=== PATIENT | female | born 1960 | race Caucasian/White ===

== ENCOUNTER 2016-11-10 22:50 | Emergency (ER) | payer OTHER ==
[~2016-11-10] VITALS: Ht 175.3 cm; Wt 85.9 kg
[~2016-11-10 22:50] MED LIST: DEBROX 30 ML30 ML OTIC; FLEXERIL10 MG PO; KEFLEX250 M1 PO; LEVOTHYROXINE75 MCG PO; MOTRIN800 MG PO
[2016-11-10 22:58] VITALS: BP 133/75
--- NOTE | 2016-11-11 00:17 | ED GENERAL ADULT ---
History of Present Illness General Chief Complaint: General Adult Stated Complaint: PT SKIN ON THE LEFT LEG TENDER,SWOLLEN Source: patient, family Exam Limitations: language barrier Vital Signs & Intake/Output Vital Signs & Intake/Output Vital Signs Date Time Temp Pulse Resp B/P Pulse O2 O2 Flow FiO2 Ox Delivery Rate 11/11 0107 99.7 11/11 0107 Room Air 11/11 0106 99.7 11/10 2302 101.3 11/10 2258 101.3 98 20 133/75 97 Room Air ED Intake and Output 11/11 0000 11/10 1200 Intake Total Output Total Balance Patient 189 lb Weight Allergies Coded Allergies: NO KNOWN ALLERGIES (11/11/14) Reconcile Medications Carbamide Peroxide (Debrox 30 Ml) 30 ML CAN 2 GTT OTIC TID EAR WAX Cephalexin (Keflex) 250 MG CAPSULE 1 CAP PO 4 TIMES/DAY CELLULITIS Cephalexin (Keflex) 250 MG CAPSULE 1 CAP PO 4 TIMES/DAY CELLULITIS CYCLOBENZAPRINE HCL (Flexeril) 10 MG TABLET 1 TAB PO 4XDAY PRN MUSCLE SPASM Ibuprofen (Motrin) 800 MG TAB 1 TAB PO 4XDAY PRN PAIN Levothyroxine Sodium 50 MCG TABLET 1 TAB PO DAILY THYROID (Reported) Sulfamethoxazole/Trimethoprim (Bactrim 400-80 MG Tablet) 400 MG-80 MG TABLET 1 TAB PO BID CELLULITIS Triage Note: RECEIVED 56 YO FEMALE C/O HAD A ABSCESS RUPTURE YESTERDAY ON HER LEFT LEG. NOW PT C/O H/A, FEVER, CHILLS, COUGH. WITH PLEURITIC CHEST PAIN WITH COUGHING ONLY. Triage Nurses Notes Reviewed? yes Onset: Gradual Duration: constant Timing: recent history Severity: moderate Severity Numbers: 5 HPI: Patient is a 56-year-old female with a past medical history of hypothyroidism who presents emergency room in which patient does speak Bosnian only however son is here to translate who states that yesterday patient had a gradual onset of LEFT lower leg swelling tender AND SAW A pimple in which she squeezed the area and which she noted discharge THEN. Patient states that the discharge has resolved. Patient states that since she's been complaining of fevers and not feeling well and states surrounding erythema to the LEFT lower leg. Patient denies any pain Patient does state that she has a cough and headache and chills (MARBELLA DENNISON,EB) Past History Travel History Traveled to [place] past 21 day No Medical History Any Pertinent Medical History? see below for history Neurological: NONE EENT: NONE Cardiovascular: NONE Respiratory: NONE Gastrointestinal: NONE Hepatic: NONE Renal: NONE Musculoskeletal: NONE Psychiatric: NONE Endocrine: hypothyroidism Blood Disorders: NONE Cancer(s): NONE Surgical History Surgical History: non-contributory Psychosocial History Who do you live with Spouse Services at Home None What is your primary language Other Tobacco Use: Never used Family History Hx Contributory? No (EB CODY) Review of Systems Review of Systems Constitutional: Reports: see HPI, chills, fever. EENTM: Reports: no symptoms. Respiratory: Reports: see HPI, cough. Cardiovascular: Reports: no symptoms. GI: Reports: no symptoms. Genitourinary: Reports: no symptoms. Musculoskeletal: Reports: no symptoms. Skin: Reports: see HPI. Neurological/Psychological: Reports: see HPI, headache. Hematologic/Endocrine: Reports: no symptoms. Immunologic/Allergic: Reports: no symptoms. All Other Systems: Reviewed and Negative (EB CODY) Physical Exam Physical Exam General Appearance: no apparent distress, alert, comfortable Skin: warm/dry Comments: Well-developed well-nourished person in no acute distress HEENT: Normal EENT exam, Neck: Supple, no lymphadenopathy, normal range of motion without pain or tenderness Back: Nontender, no CVA tenderness. Cardiovascular: Regular rate and rhythms no murmurs rubs or gallops, normal JVP Respiratory: Chest nontender. No respiratory distress.breath sounds clear to auscultation bilaterally Abdomen: Soft, nontender nondistended, no appreciable organomegaly. Normal bowel sounds. No ascites Extremity: No edema, no calf tenderness to palpation, normal and equal pulses. Neuro: Alert oriented x3, motor sensory normal, Skin: No appreciable rash on exposed skin, skin is warm and dry. Psych: Mood and affect is normal, memory and judgment is normal. Core Measures ACS in differential dx? No CVA/TIA Diagnosis: No Severe Sepsis Present: No Septic Shock Present: No Diagram Body: 1) 3 mm well-healing intact puncture wound noted with surrounding erythema warmth and fluctuance. No active discharge noted (EB CODY) Progress Differential Diagnoses I considered the following diagnoses in my evaluation of the patient: [Sepsis, meningitis, cellulitis, compartment syndrome, abscess, pneumonia,] Plan of Care: Orders Procedure Date/time Status EXTREMETIES CULTURE 11/11 0033 Active Microbiology 11/11 99 EXTREMITIE: Culture & Sensitivity - RECD 11/11 99 EXTREMITIE: Gram Stain - RECD Patient has no signs on exam of meningitis negative Brudzinski negative Kernig' s. Incision and drainage was performed culture was sent patient will be placed with Keflex and Bactrim. Patient's fever had resolved 99.7 prior to discharge. Patient will return to the emergency room in 2 days for follow-up if not sooner if symptoms worsen Patient has clear lungs auscultation On discharge patient was [id number] afebrile (EB CODY) Initial ED EKG: none (EB CODY) Departure Departure Disposition: HOME OR SELF CARE Condition: Stable Clinical Impression Primary Impression: Cellulitis of leg, left Secondary Impressions: Abscess of leg, left Referrals: SAM SOTELO,URBANO Cheney (PCP/Family) Additional Instructions: As discussed begin to apply warm compresses TO the area and try to leave the bandage on the has been applied to in the emergency room. If bandage falls off please apply with the extra bandages provided to the emergency room. Begin and continue [id number] Tylenol for fevers. And begin the prescription of Bactrim and Keflex as directed for the full course. If symptoms worsen return to emergency room. Return to emergency room in 2 days for follow-up and recheck of symptoms. Perceptions waiting at [facility] pharmacy. Departure Forms: Customer Survey General Discharge Information Prescriptions: Current Visit Scripts Cephalexin (Keflex) 1 CAP PO 4 TIMES/DAY #40 CAP Sulfamethoxazole/Trimethoprim (Bactrim 400-80 MG Tablet) 1 TAB PO BID #20 TAB (EB CODY) PA/READING INTERVENTION TEACHER Co-Sign Statement Statement: ED Attending supervision documentation- [] I saw and evaluated the patient. I have also reviewed all the pertinent lab results and diagnostic results. I agree with the findings and the plan of care as documented in the PA's/READING INTERVENTION TEACHER's documentation. [x] I have reviewed the ED Record and agree with the PA's/READING INTERVENTION TEACHER's documentation. [] Additions or exceptions (if any) to the PAs/READING INTERVENTION TEACHER's note and plan are summarized below: [] (KHLOE SOTELO,LIZET Maravilla) Procedures Incision and Drainage Site: LEFT ANTERIOR LOWER LEG Blade Size: 15 I & D Procedure: Yes: betadine prep, sterile drapes applied, sterile dressing applied, wick placed. Progress: I first appliedial sterile technique and Betadine application to the left lower leg wound site Using 1% lidocaine 5 mL local anesthesia was successful I then incised the wound 1 cm using a 15 blade With no purulent discharge noted however minimal bleeding did occur culture was obtained. WICK, Gauze and Tegaderm was then applied Patient tolerated well Culture currently pending (BE CODY) Critical Care Note Critical Care Note Critical Care Time: non-applicable (EB CODY)
[2016-11-11] MEDS ORDERED: BACTRIM 400-801 EACH PO (00:42)
[2016-11-11] MEDS ORDERED: KEFLEX250 M1 PO (00:42)
== END 2016-11-11 01:29 ==
LOC: ERH 22:50
DX: L03.116 Cellulitis of left lower limb (principal); L02.416 Cutaneous abscess of left lower limb
CPT/HCPCS: 87070

== ENCOUNTER 2016-11-12 21:07 | Inpatient (IN) | payer OTHER ==
[~2016-11-12] VITALS: Ht 175.3 cm; Wt 84.4 kg
[~2016-11-12 21:07] MED LIST changes: +BACTRIM 400-801 EACH PO
--- NOTE | 2016-11-12 21:31 | NUR ---
PT TO ED C/O FEVER AND HEADACHES SINCE TUESDAY, REPORTS SHE WAS SEEN FOR CELLULITIS ON TUESDAY WELL AND SENT HOME ON ABX. TEMP 102.2 IN TRIAGE.
--- NOTE | 2016-11-12 21:35 | ED UPPER/LOWER EXTREMITY COMPL ---
History of Present Illness General Chief Complaint: Suture Removal/Wound Recheck Stated Complaint: WOUND RECHECK Source: patient Exam Limitations: no limitations Vital Signs & Intake/Output Vital Signs & Intake/Output Vital Signs Date Time Temp Pulse Resp B/P Pulse O2 O2 Flow FiO2 Ox Delivery Rate 11/12 2330 99.7 11/12 2213 101.0 11/128 100 Room Air 11/127 102.2 11/12 2129 102.2 90 16 111/71 100 Room Air ED Intake and Output 11/13 0000 11/12 1200 Intake Total Output Total Balance Patient 186 lb Weight Allergies Coded Allergies: NO KNOWN ALLERGIES (11/11/14) Reconcile Medications Carbamide Peroxide (Debrox 30 Ml) 30 ML CAN 2 GTT OTIC TID EAR WAX Cephalexin (Keflex) 250 MG CAPSULE 1 CAP PO 4 TIMES/DAY CELLULITIS Cephalexin (Keflex) 250 MG CAPSULE 1 CAP PO 4 TIMES/DAY CELLULITIS CYCLOBENZAPRINE HCL (Flexeril) 10 MG TABLET 1 TAB PO 4XDAY PRN MUSCLE SPASM Ibuprofen (Motrin) 800 MG TAB 1 TAB PO 4XDAY PRN PAIN Levothyroxine Sodium 50 MCG TABLET 1 TAB PO DAILY THYROID (Reported) Sulfamethoxazole/Trimethoprim (Bactrim 400-80 MG Tablet) 400 MG-80 MG TABLET 1 TAB PO BID CELLULITIS Triage Note: PT TO ED C/O FEVER AND HEADACHES SINCE TUESDAY, REPORTS SHE WAS SEEN FOR CELLULITIS ON TUESDAY WELL AND SENT HOME ON ABX. TEMP 102.2 IN TRIAGE. Triage Nurses Notes Reviewed? yes Onset: Gradual Duration: day(s):, getting worse Timing: recent history Severity: moderate Pain/Injury Location: Left: Leg. Method of Injury: "I have an infection" Modifying Factors: Worsens With: movement. Associated Symptoms: swelling, redness HPI: 56 yo woman presents with fever to 102 and increased redness and warmth of her left palacios at the site of her cellulitis. She notes Past History Travel History Traveled to [place] past 21 day No Medical History Any Pertinent Medical History? see below for history Neurological: NONE EENT: NONE Cardiovascular: NONE Respiratory: NONE Gastrointestinal: NONE Hepatic: NONE Renal: NONE Musculoskeletal: NONE Psychiatric: NONE Endocrine: hypothyroidism Blood Disorders: NONE Cancer(s): NONE Surgical History Surgical History: non-contributory Psychosocial History Who do you live with Spouse Services at Home None What is your primary language Other Tobacco Use: Never used ETOH Use: denies use Illicit Drug Use: denies illicit drug use Family History Hx Contributory? No Review of Systems Review of Systems Constitutional: Reports: no symptoms. EENTM: Reports: no symptoms. Respiratory: Reports: no symptoms. Cardiovascular: Reports: no symptoms. Gastrointestinal/Abdominal: Reports: no symptoms. Genitourinary: Reports: no symptoms. Musculoskeletal: Reports: no symptoms. Skin: Reports: no symptoms. Neurological/Psychological: Reports: no symptoms. Hematologic/Endocrine: Reports: no symptoms. Immunological: Reports: no symptoms. All Other Systems: Reviewed and Negative Physical Exam Physical Exam General Appearance: well developed/nourished, mild distress Head: atraumatic Eyes: Bilateral: normal appearance. Ears, Nose, Throat: normal pharynx, normal ENT inspection, hearing grossly normal Neck: normal inspection, supple Cardiovascular/Respiratory: regular rate/rhythm Back: normal inspection Leg Left: left palacios is warm, slightly red to palpation. no crepitus. no lymphangitic streaking. Skin: intact, normal color, warm/dry Lymphatic: no anterior cervical janett Progress Differential Diagnosis: cellulitis, abscess vs other. Plan of Care: Orders Procedure Date/time Status Nothing by Mouth 11/13 B Active Saline Lock 11/12 2139 Active Misc Message 11/12 2139 Active ED Holding Orders 11/12 2139 Active Vital Signs 11/12 2139 Active BLOOD CULTURE 11/12 2139 Active Code Status 11/12 2139 Active Admit to inpatient 11/12 2138 Active BLOOD CULTURE 11/12 2135 Active COMPREHENSIVE METABOLIC PANEL 11/12 2135 Complete CBC WITHOUT DIFFERENTIAL 11/12 2135 Complete Laboratory Tests 11/12/160: Anion Gap 11, Estimated GFR > 60, BUN/Creatinine Ratio 10.0, Glucose 100 H, Calcium 8.9, Total Bilirubin 0.7, AST 59 H, ALT 43, Alkaline Phosphatase 49, Total Protein 7.3, Albumin 4.1, Globulin 3.2, Albumin/Globulin Ratio 1.3, CBC w Diff NO MAN DIFF REQ, RBC 4.36, MCV 87.2, MCH 29.7, RDW 12.7, MPV 8.6, Gran % 42.5, Lymphocytes % 37.5, Monocytes % 19.1 H, Eosinophils % 0.5, Basophils % 0.4, Absolute Granulocytes 1.8, Absolute Lymphocytes 1.6, Absolute Monocytes 0.8 H, Absolute Eosinophils 0, Absolute Basophils 0, PUBS MCHC 34.1 Microbiology 11/12 2199 BLOOD: Blood Culture - RECD 11/12 2144 BLOOD: Blood Culture - RECD Diagnostic Imaging: Viewed by Me: Radiology Read. Discussed w/RAD: Radiology Read. Radiology Impression: left tib/fib... small area of soft tissue gas. Comments: PATIENT: SIMBA CONWAY PRESENT AGE: 56 PATIENT ACCOUNT NO: [id number] : 61 LOCATION: [facility] ORDERING PHYSICIAN: LIZET LEDBETTER MD SERVICE DATE: 11/12/16 EXAM TYPE: RAD - [id number], LEFT EXAMINATION: XR TIBIA AND FIBULA, LEFT CLINICAL INFORMATION: Left puncture wound, question subcutaneous tract and gas COMPARISON: None. TECHNIQUE: AP and lateral views. FINDINGS: There is mild focal soft tissue swelling anteriorly in the upper to mid calf, with a small focus of gas visualized in this region on the lateral projection. This likely corresponds to subtle focal lucency in the lateral calf on the frontal view at this same level. Otherwise, no definite soft tissue gas is identified. Osseous alignment is anatomic. No evidence of acute fracture. IMPRESSION: Mild focal soft tissue swelling anteriorly in the upper to mid calf, with a small focus of soft tissue gas. DICTATED BY: LENORE KNUTSON MD DATE/TIME DICTATED:11/12/162305 WORKPLACE RELATIONS ADVISER:RAMIN DATE/TIME TRANSCRIBED:11/12/162305 CONFIDENTIAL, DO NOT COPY WITHOUT APPROPRIATE AUTHORIZATION. <Electronically signed in Other Vendor System> SIGNED BY: LENORE KNUTSON MD 11/12/16 231 Departure Departure Disposition: STILL A PATIENT Condition: Stable Clinical Impression Primary Impression: Cellulitis Secondary Impressions: Sepsis Referrals: URBANO VARGAS MD (PCP/Family) Departure Forms: Customer Survey General Discharge Information Admission Note Spoke With: NIGEL CASANOVA MD Documentation of Exam: Documentation of any treatments & extenuating circumstances including Concerns Regarding Discharge (functional status, medication knowledge or non-compliance, living conditions, etc.) that warrant an admission rather than observation: pt has failed out-patient oral antibiotics, including oral coverage for mrsa. Culture from abscess is still no growth to date. small area of gas on xray corresponds to site of drainage... i doubt necrotizing fasciitis. pt merits close follow up , iv abx. Critical Care Note Critical Care Note Critical Care Time: 30-74 min
--- NOTE | 2016-11-12 22:07 | NUR ---
THIS ESTABLISHED IV ACCESS RAC #20, BLOOD CULTURES COLLECTED AND SENT TO LAB, LABS DRAWN AND SENT BY THISRN (LAV, BLUE, FORD, SST)
--- NOTE | 2016-11-12 22:10 | NUR ---
1G VANCOMYCIN INFUSING AT 250ML/HR.
[2016-11-12 22:24] LABS: ABSOLUTE BASOPHIL COUNT 0 /CUMM (0.0-0.2); ABSOLUTE EOSINOPHIL COUNT 0 /CUMM (0.0-0.7); ABSOLUTE GRANULOCYTE CT 1.8 /CUMM (1.4-6.5); ABSOLUTE LYMPH COUNT 1.6 /CUMM (1.2-3.4); ABSOLUTE MONOCYTE COUNT 0.8 /CUMM (0.10-0.60); BASOPHIL % 0.4 % (0.0-2.0); EOSINOPHIL % 0.5 % (0-5); GRANULOCYTE % 42.5 % (42.2-75.2); MEAN CORPUSCULAR HGB 29.7 PG (27.0-31.0); MEAN CORPUSCULAR HGB CONC 34.1 G/DL (33.0-37.0); MEAN CORPUSCULAR VOLUME 87.2 FL (81.0-99.0); MEAN PLATELET VOLUME 8.6 FL (7.4-10.4); PLATELET COUNT 143 /CUMM (130-400); RBC DISTRIBUTION WIDTH 12.7 % (11.5-14.5); RED BLOOD CELL CT 4.36 /CUMM (4.20-5.40); WHITE BLOOD CELL COUNT 4.3 /CUMM (4.8-10.8)
--- NOTE | 2016-11-12 22:26 | NUR ---
PTS DAUGHTER REQUESTING TO SEE DR LEDBETTER IMMEDIATELY THIS RN INFORMED THE PTS DAUGHTER THAT DR LEDBETTER ALREADY MET WITH THE PT AND SPOKE WITH HER AND THE PTS SON BEFORE THE DAUGHTER ARRIVED AND THE INTERVENTIONS AND MEDICATIONS THAT THE PT IS RECIEVEING. PTS DAUGHTER SENT SEASON[facility] BUNDLER AWAY UNTIL SHE SPOKE WITH THE . THIS RN CALLED [facility]RJAQUI BACK TO COME GET THE PT.
--- NOTE | 2016-11-12 22:42 | NUR ---
PT TO XRAY
--- NOTE | 2016-11-12 22:46 | NUR ---
PT BACK FROM XRAY
--- NOTE | 2016-11-12 22:54 | NUR ---
DR LEDBETTER IN FOR POC
--- NOTE | 2016-11-12 23:12 | RADIOLOGY REPORT ---
EXAMINATION: XR TIBIA AND FIBULA, LEFT CLINICAL INFORMATION: Left puncture wound, question subcutaneous tract and gas COMPARISON: None. TECHNIQUE: AP and lateral views. FINDINGS: There is mild focal soft tissue swelling anteriorly in the upper to mid calf, with a small focus of gas visualized in this region on the lateral projection. This likely corresponds to subtle focal lucency in the lateral calf on the frontal view at this same level. Otherwise, no definite soft tissue gas is identified. Osseous alignment is anatomic. No evidence of acute fracture. IMPRESSION: Mild focal soft tissue swelling anteriorly in the upper to mid calf, with a small focus of soft tissue gas.
--- NOTE | 2016-11-13 00:27 | History & Physical ---
TAMICA FERREIRA MD 11/13/16 0026: General Information and HPI MD Statement: I have seen and personally examined SIMBA CONWAY and documented this H&P. The patient is a 56 year old F who presented with a patient stated chief complaint of [persistent fever and cellulitis]. Source of Information: patient, family Exam Limitations: no limitations, language barrier, family at bedside translating History of Present Illness: 56-year-old female with PMH hypothyroidism presented to ED for wound check, persistent fever, and cellulitis. On Tuesday, she experienced sharp pain on her left palacios. On Tuesday, there was a "pimple-like" lesion, that she tried to drain but was unable to. She cleaned the area with rubbing alcohol. On Tuesday, the area was red, and swollen, and she was having fever up to 39 degrees celsius. She presented to the ED for which I&D was done, and cultures sent from the drainage. No organism seen and NGTD. She was sent home on bactrim and keflex, which she has been taking as directed. She was asked to come back in 2 days for wound check. She came back to the ED 2 days later, with persistent fever, 102.2 at triage, chills. Xray of the left leg done, showed small amount of gas. I spoke to the radiologist, he said that it is most likely due to the puncture wound from the I &D, but if we are concerned about necrotizing fasciitis, we can get CT or repeat X-ray, and US if concern for abscess. I spoke to Dr. Barfield over the phone, and he will have the surgery team follow up on the patient. Pt has been having mild dry cough. But she did have some sputum production this am. ROS negative otherwise. Allergies/Medications Allergies: Coded Allergies: NO KNOWN ALLERGIES (11/11/14) Home Med list Cephalexin (Keflex) 250 MG CAPSULE 1 CAP PO 4 TIMES/DAY CELLULITIS Levothyroxine Sodium 75 MCG TABLET 1 TAB PO DAILY thyorid (Reported) Sulfamethoxazole/Trimethoprim (Bactrim 400-80 MG Tablet) 400 MG-80 MG TABLET 1 TAB PO BID CELLULITIS Past History Travel History Traveled to [place] past 21 day No Medical History Neurological: NONE EENT: NONE Cardiovascular: NONE Respiratory: NONE Gastrointestinal: NONE Hepatic: NONE Renal: NONE Musculoskeletal: NONE Psychiatric: NONE Endocrine: hypothyroidism Blood Disorders: NONE Cancer(s): NONE Surgical History Surgical History: non-contributory Past Family/Social History Family History Relations & Conditions if any FATHER FH: stomach cancer Psychosocial History Services at Home: None Primary Language: [facility] Smoking Status: Never Smoked ETOH Use: denies use Illicit Drug Use: denies illicit drug use Functional Ability ADLs Independent: dressing, eating, toileting, bathing. Ambulation: independent IADLs Independent: shopping, housework, finances, food prep, telephone, transportation , medication admin. Review of Systems Review of Systems Constitutional: Reports: chills, fever. EENTM: Denies: visual changes. Cardiovascular: Denies: chest pain, palpitations. Respiratory: Reports: cough. Denies: short of breath, sputum production. GI: Denies: abdominal pain, bloating, constipation, diarrhea, nausea, vomiting. Genitourinary: Denies: dysuria. Exam & Diagnostic Data Last 24 Hrs of Vital Signs/I&O Vital Signs Date Time Temp Pulse Resp B/P Pulse O2 O2 Flow FiO2 Ox Delivery Rate 11/13 0108 98.6 62 18 118/60 97 Room Air 11/12 2330 99.7 11/12 2213 101.0 11/12 2208 100 Room Air 11/12 2137 102.2 11/12 2130 102.2 90 16 111/71 100 Room Air Intake & Output 11/13 0800 11/13 0000 11/12 1600 Intake Total Output Total Balance Patient 84.368 kg Weight Physical Exam General Appearance Alert, Oriented X3, Cooperative, No Acute Distress Skin 8mm linear laceration from recent I&D. has surrounding erythema and induration about 1.5 cm in diameter. no crepitus. non tender. HEENT Atraumatic, PERRLA, EOMI, Mucous Membr. moist/pink Neck Supple, No thryomegaly, +2 Carotid Pulse wo Bruit Lymphatic Axillary nl, Cervical nl Cardiovascular Regular Rate, Normal S1, Normal S2, No Murmurs, Gallops, Rubs Lungs Clear to Auscultation, Normal Air Movement Abdomen Normal Bowel Sounds, Soft, No Tenderness Neurological Normal Speech Extremities No Edema Body Front and Back (Adult) 1) 8mm linear laceration from previous I&D, still draining serosanguinous fluid, no pus noted. surrounding 1.5 cm diameter erythema with induration without tenderness. Last 24 Hrs of Labs/Darrell: Laboratory Tests 11/12/162199: Anion Gap 11, Estimated GFR > 60, BUN/Creatinine Ratio 10.0, Glucose 100 H, Calcium 8.9, Total Bilirubin 0.7, AST 59 H, ALT 43, Alkaline Phosphatase 49, Total Protein 7.3, Albumin 4.1, Globulin 3.2, Albumin/Globulin Ratio 1.3, CBC w Diff NO MAN DIFF REQ, RBC 4.36, MCV 87.2, MCH 29.7, RDW 12.7, MPV 8.6, Gran % 42.5, Lymphocytes % 37.5, Monocytes % 19.1 H, Eosinophils % 0.5, Basophils % 0.4, Absolute Granulocytes 1.8, Absolute Lymphocytes 1.6, Absolute Monocytes 0.8 H, Absolute Eosinophils 0, Absolute Basophils 0, PUBS MCHC 34.1 Microbiology 11/12 2199 BLOOD: Blood Culture - RECD 11/12 2144 BLOOD: Blood Culture - RECD Assessment/Plan Assessment: 56-year-old female with PMH hypothyroidism presented to ED for wound check, persistent fever, and cellulitis, despite being on bactrim and keflex. Pt admitted to [facility] with the following problems addressed: # Cellulitis - given 1X vanco in ed * Start IV clindamycin * Follow BCX2, I&D culture * Consult surgery for possible necrotizing fasciitis. Consulted Dr. Barfield over the phone, surgery team will follow up * Get CXR to r/o pneumonia as source of fever # Hypothyroidism * Continue levothyroxine 75 daily Diet: regular DVT ppx: mech and pharm (no alps on the left side) FULL CODE As Ranked By This Provider Problem List: 1. Cellulitis of leg, left Core Measures/Miscellaneous Acute Coronary Syndrome ACS Diagnosis: No Cerebrovascular Accident CVA/TIA Diagnosis: No Congestive Heart Failure CHF Diagnosis: No Venous Thromboembolism VTE Risk Factors: Acute medical illness, Age > 40 VTE Prophylaxis Ordered Inpt: Mech & Pharm No Mech VTE prophylaxis d/t: No contraindications No VTE Pharm Prophylaxis d/t: No contraindications VTE Diagnosis: No VTE Type: NONE VTE Confirmed by (Test): NONE Severe Sepsis Severe Sepsis Present: No Septic Shock Septic Shock Present: No Miscellaneous Documentation Attending Case Discussed With: JOCELYNENIGEL ENGLAND MD Primary Care Physician: URBANO VARGAS MD Patient sees these Specialists None Level of Patient Care: General Medicine NOEL POTTS 11/13/16 0211: Resident Review Statement Resident Statement: agreed with internal audit consultant, discussed with family, reviewed EMR data (avail), amended to note Other Findings: 56-year-old lady with past medical history of hypothyroidism,Acute appendicitis with intraperitoneal abscess, Came with cc of Swelling and redness on the left leg which failed outpatient oral antibiotic therapy. Patient reported that noticing a boil in her left palacios about 5 days ago and came to the hospital about 2 days ago because the recut bigger and painful. I&D was done in the [place] ED and patient was put on Bactrim and Keflex. However patient noted that having intermittent feeders within this last 2 days and she came for checkup today and it was noticed that there is more redness and induration aound the I&D site. X -ray of the leg showed small gas seen in the cellulitis area. Patient also reported having intermittent cough and mild phlegm production. Notable findings on vital signs fever of 102.2, ROS and the rest of the vital signs are noted above Notable findings on physical exam please 3 x 3 red area in the mid palacios of the left leg with central opening due to I&D with smaller induration of 1 and 1 cm aound it. No pus was seen while putting pressure on the ulcer. Otherwise physical exam is unremarkable Notable labs admission WBC 4.3, AST 59,Sodium 135. Assessment and plan #Cellulitis with gas formation with failed oral antibiotic therapy -Admit to general floor -Patient received IV vancomycin we will put the patient on IV clindamycin every 8 -Surgery consult was already placed for ruling out necrotizing fasciitis and we follow their notes -Tylenol for fevers -CBC daily -Previous wound cultures showed no growth -Follow-up blood culture -Mild IV hydration for now -Ultrasound of the soft tissue in the morning to rule out any abscess #Cough with mild sputum -We will check chest x-ray PA and lateral rule out pneumonia #Mildly elevated AST -Possibly due to infection,Repeat LFT in the morning #History of hypothyroidism -Continue levothyroxine 75 MCG Full code, Tylenol for pain and fever, regular diet, DVT prophylaxis is Alps and Lovenox NIGEL CASANOVA 11/13/16 0602: Attending MD Review Statement Attending Statement Attending MD Statement: examined this patient, discuss w/resident/PA/JOB INTERVIEWER, agreed w/resident/PA/JOB INTERVIEWER, discussed with family, reviewed EMR data (avail), reviewed images, amended to note Attending Assessment/Plan: Cc: Persistent fever, redness around the wound PMH: Hypothyroidism Patient was in ER in November 10, for swelling and pain in left leg. She was found to have a small abscess, underwent I&D in ER, discharged on Keflex and Bactrim. At home redness around the wound persisted and she had fever, she was suggested to follow-up in previous ER visit so she came to ER again. Vitals: T max: 102.2, RR, HR, BP, O2 saturation acceptable range. On examination : A O 3, anxious, no distress, CVS, RS, abdomen, neurological examination unremarkable. There is a small wound on left lower extremity on middle of she now TBI with 1 cm incision, draining reddish fluid, surrounded by mild inflammation, no abscess, no crepitus, mild induration. Labs: CBC, BMP, LFT unremarkable. X-ray tibia-fibula showed Mild focal soft tissue swelling anteriorly in the upper to mid calf, with a small focus of soft tissue gas. Assessment and plan #1 cellulitis surrounding incision wound: Continue IV clindamycin, gentle hydration, Although this gas corresponds to previous I&D, surgery was informed about this because of her high-grade fever. Follow blood cultures. #2 continue home doses of Synthroid, adequate pain control, heparin or Lovenox for DVT prophylaxis.
--- NOTE | 2016-11-13 00:44 | NUR ---
HOUSE STAFF IN FOR EVAL
--- NOTE | 2016-11-13 01:12 | NUR ---
PT AMBULATED TO THE BATHROOM WITH A STEADY GAIT INDEPENDENTLY.
--- NOTE | 2016-11-13 01:34 | NUR ---
PT GOING TO ROOM 229-2
--- NOTE | 2016-11-13 01:59 | NUR ---
REPORT GIVEN TO PRAVEEN EARL.
--- NOTE | 2016-11-13 02:04 | NUR ---
SURGICAL PA JACKIE IN SPEAKING WITH PT AND PTS FAMILY
--- NOTE | 2016-11-13 02:37 | Cons- General Surgery ---
SELAM GRIMM 11/13/16 0223: General Information and HPI Consulting Request Date of Consult: 11/13/16 Requested By: NIGEL CASANOVA MD Reason for Consult: Status post I&D left anterior leg wound with concerns for necrotizing fasciitis Source of Information: patient, family Exam Limitations: no limitations History of Present Illness: Ms. Branch is a 56-year-old female with past medical history significant for hypothyroidism who was at [facility] nights ago with a small red indurated area over her left anterior leg. She had mild pain symptoms at the time and this was believed to be a local boil and was lanced at the bedside emergency room. She was sent out by the medical staff on Keflex and Bactrim. At home she did not complain of any fevers or chills or increased pain or redness. She returns today only for a wound check. However when she arrived she had a fever to 102.2. She states that she also had fevers at home but denied chills or Reiger's. She has no other constitutional symptoms at this time. Allergies/Medications Allergies: Coded Allergies: NO KNOWN ALLERGIES (11/11/14) Home Med List: Cephalexin (Keflex) 250 MG CAPSULE 1 CAP PO 4 TIMES/DAY CELLULITIS Levothyroxine Sodium 75 MCG TABLET 1 TAB PO DAILY thyorid (Reported) Sulfamethoxazole/Trimethoprim (Bactrim 400-80 MG Tablet) 400 MG-80 MG TABLET 1 TAB PO BID CELLULITIS Past History Medical History Neurological: NONE EENT: NONE Cardiovascular: NONE Respiratory: NONE Gastrointestinal: NONE Hepatic: NONE Renal: NONE Musculoskeletal: NONE Psychiatric: NONE Endocrine: hypothyroidism Blood Disorders: NONE Cancer(s): NONE Surgical History Pertinent Surgical History: non-contributory Family History Relations & Conditions If Any: FATHER FH: stomach cancer Psychosocial History Services at Home: None Primary Language: [facility] Smoking Status: Never Smoked ETOH Use: denies use Illicit Drug Use: denies illicit drug use Functional Ability ADLs Independent: dressing, eating, toileting, bathing. Ambulation: independent IADLs Independent: shopping, housework, finances, food prep, telephone, transportation , medication admin. Review of Systems Review of Systems Constitutional: Reports: fever. Denies: no symptoms, see HPI, chills, diaphoresis, malaise, weakness, unexplained weight loss. Exam & Diagnostic Data Vital Signs and I&O Vital Signs Date Time Temp Pulse Resp B/P Pulse O2 O2 Flow FiO2 Ox Delivery Rate 11/13 0108 98.6 62 18 118/60 97 Room Air 11/120 99.7 11/12 2212 101.0 11/12 2207 100 Room Air 11/12 2136 102.2 11/12 2129 102.2 90 16 111/71 100 Room Air Intake & Output 11/13 0800 11/13 1600 Intake Total Output Total Balance Patient 186 lb Weight Physical Exam: cv: rrr lungs: clear abd: soft ext: There is a small puncture area over the proximal left anterior tibialis muscle. There is mild local erythema at the site of the puncture. There is no cellulitis present. There is no fluctuation noted. There is no erythema or warmth noted. There is no evidence of local skin necrosis or crepitus to palpation. There is also no pain to palpation in the surrounding tissue. Distal CMS is intact Last 24 Hours of Labs: Laboratory Tests 11/12 2199 Chemistry Sodium (137 - 145 mmol/L) 135 L Potassium (3.5 - 5.1 mmol/L) 4.2 Chloride (98 - 107 mmol/L) 99 Carbon Dioxide (22 - 30 mmol/L) 25 Anion Gap (5 - 16) 11 BUN (7 - 17 mg/dL) 8 Creatinine (0.5 - 1.0 mg/dL) 0.8 Estimated GFR (>60 ml/min) > 60 BUN/Creatinine Ratio (7 - 25 %) 10.0 Glucose (65 - 99 mg/dL) 100 H Calcium (8.4 - 10.2 mg/dL) 8.9 Total Bilirubin (0.2 - 1.3 mg/dL) 0.7 AST (14 - 36 U/L) 59 H ALT (9 - 52 U/L) 43 Alkaline Phosphatase (<127 U/L) 49 Total Protein (6.3 - 8.2 g/dL) 7.3 Albumin (3.5 - 5.0 g/dL) 4.1 Globulin (1.9 - 4.2 gm/dL) 3.2 Albumin/Globulin Ratio (1.1 - 2.2 %) 1.3 Hematology CBC w Diff NO MAN DIFF REQ WBC (4.8 - 10.8 /CUMM) 4.3 L RBC (4.20 - 5.40 /CUMM) 4.36 Hgb (12.0 - 16.0 G/DL) 12.9 Hct (37 - 47 %) 38.0 MCV (81.0 - 99.0 FL) 87.2 MCH (27.0 - 31.0 PG) 29.7 RDW (11.5 - 14.5 %) 12.7 Plt Count (130 - 400 /CUMM) 143 MPV (7.4 - 10.4 FL) 8.6 Gran % (42.2 - 75.2 %) 42.5 Lymphocytes % (20.5 - 51.1 %) 37.5 Monocytes % (1.7 - 9.3 %) 19.1 H Eosinophils % (0 - 5 %) 0.5 Basophils % (0.0 - 2.0 %) 0.4 Absolute Granulocytes (1.4 - 6.5 /CUMM) 1.8 Absolute Lymphocytes (1.2 - 3.4 /CUMM) 1.6 Absolute Monocytes (0.10 - 0.60 /CUMM) 0.8 H Absolute Eosinophils (0.0 - 0.7 /CUMM) 0 Absolute Basophils (0.0 - 0.2 /CUMM) 0 PUBS MCHC (33.0 - 37.0 G/DL) 34.1 Imaging Results: SERVICE DATE: 11/12/16 EXAM TYPE: RAD - [id number], LEFT EXAMINATION: XR TIBIA AND FIBULA, LEFT CLINICAL INFORMATION: Left puncture wound, question subcutaneous tract and gas COMPARISON: None. TECHNIQUE: AP and lateral views. FINDINGS: There is mild focal soft tissue swelling anteriorly in the upper to mid calf, with a small focus of gas visualized in this region on the lateral projection. This likely corresponds to subtle focal lucency in the lateral calf on the frontal view at this same level. Otherwise, no definite soft tissue gas is identified. Osseous alignment is anatomic. No evidence of acute fracture. IMPRESSION: Mild focal soft tissue swelling anteriorly in the upper to mid calf, with a small focus of soft tissue gas. DICTATED BY: LENORE KNUTSON MD DATE/TIME DICTATED:11/12/162305 SLAB [employer] M[employer] TENDER:RAMIN DATE/TIME TRANSCRIBED:11/12/162305 Assessment/Plan Assessment/Plan Ms. Branch 56-year-old female who had undergone a left anterior leg I&D in the emergency room 2 days ago. She is here today for a local wound check but due to her persistent fevers and x-ray was taken demonstrating a small foci of gas at the site of the I&D 2 days ago. She also complained of persistent fevers at home and upon arrival had a fever of 102. She had no pain complaints. This does not appear to be an necrotizing fasciitis warranting emergent surgical intervention but given the fact that she continued to have persistent fevers while on antibiotics by mouth she would probably benefit from admission, IV antibiotics, wound observation. This case was discussed with and pertinent clinical data was reviewed by Dr. Barfield who agrees. Plan The patient will be admitted to the medical service for IV antibiotics. And Dr. Barfield will evaluate the patient in the a.m. Please feel free to contact the surgical service for any significant changes in her clinical picture. Consult Acknowledgment - Thank you for your consult request. DEJA BARFIELD MD 11/13/16 1030: Assessment/Plan Consult Acknowledgment - Thank you for your consult request. Attending MD Review Statement Attending Statement Attending MD Statement: examined this patient, discuss w/resident/PA/POISER BALANCE, reviewed images Attending Assessment/Plan: This is a relatively healthy 56-year-old woman who presents with cellulitis and high spiking fevers. She was seen in the emergency room 2 days ago at which time incision and drainage of a "abscess" was performed. Cultures taken and at that time showed no growth of bacteria. She was discharged home on Keflex and Bactrim with minimal improvement in her symptoms. X-ray on admission shows small punctate foci of gas in the soft tissues. This does not represent a necrotizing soft tissue infection, but rather air in an open wound. No surgical intervention is required. My only concern is that she has persistently high spiking fevers without leukocytosis. Her differential shows a monocyte shift. This is not in keeping with the typical bacterial infection of the soft tissues which would involve Staphylococcus and/or Streptococcus. I would recommend getting infectious disease consultation to look for an alternative diagnosis. It may be that she has some sort of insect transmitted disease.
--- NOTE | 2016-11-13 02:50 | RADIOLOGY REPORT ---
EXAMINATION: XR CHEST CLINICAL INFORMATION: Cough and fever COMPARISON: 01/19/2013 TECHNIQUE: PA and lateral views of the chest were obtained. FINDINGS: The lungs are clear with no focal consolidation. No evidence of pneumothorax, pulmonary edema, or pleural effusions. Cardiac size is within normal limits. Calcification is present at the aortic arch. No acute osseous findings. IMPRESSION: No acute cardiopulmonary findings.
[2016-11-13 03:03] VITALS: BP 98/50
--- NOTE | 2016-11-13 03:06 | Event Note ---
Event Note Event Note: I checked on the patient about 2 hours after initial evaluation. She was comfortably lying in bed, asleep. Surgical team has evaluated the patient. There is no significant change in the lesion on her left palacios from prior exam.
--- NOTE | 2016-11-13 06:04 | Admission Certification ---
Admission Certification Certification Statement - As attending physician, I certify that at the time of - admission, based on clinical presentation, severity of - symptoms, need for further diagnostic testing and - therapeutic interventions, and risk of adverse outcomes - without in-hospital treatment, in my clinical assessment, - this patient requires an acute hospital stay for a minimum - of two nights or longer. I have also considered psychsocial - factors such as support system, advanced age, financial - issues, cognitive issues, and failed out-patient treatments, - past re-admission history, safety of patient, and lack of - compliance as applicable. Specific rationale supporting this admission is: Cellulitis left lower extremity, with I&D of abscess
[2016-11-13 08:15] LABS: ABSOLUTE BASOPHIL COUNT 0 /CUMM (0.0-0.2); ABSOLUTE EOSINOPHIL COUNT 0 /CUMM (0.0-0.7); ABSOLUTE GRANULOCYTE CT 1.2 /CUMM (1.4-6.5); ABSOLUTE LYMPH COUNT 1.7 /CUMM (1.2-3.4); ABSOLUTE MONOCYTE COUNT 0.7 /CUMM (0.10-0.60); BASOPHIL % 0.4 % (0.0-2.0); EOSINOPHIL % 0.2 % (0-5); GRANULOCYTE % 33.5 % (42.2-75.2); HEMATOCRIT 36.8 % (37-47); MEAN CORPUSCULAR HGB 30.1 PG (27.0-31.0); MEAN CORPUSCULAR HGB CONC 34.3 G/DL (33.0-37.0); MEAN CORPUSCULAR VOLUME 87.8 FL (81.0-99.0); MEAN PLATELET VOLUME 9.3 FL (7.4-10.4); PLATELET COUNT 124 /CUMM (130-400); RBC DISTRIBUTION WIDTH 12.7 % (11.5-14.5); WHITE BLOOD CELL COUNT 3.6 /CUMM (4.8-10.8)
--- NOTE | 2016-11-13 11:56 | ULTRASOUND REPORT ---
EXAMINATION: US SUPERFICIAL IMAGING, EXTREMITY CLINICAL INFORMATION: Fever. Cellulitis. Evaluate for abscess. Patient states 1 week history of red and swollen bump on the left palacios. Puncture injury. COMPARISON: Left tibia and fibula dated 11/12/2016. TECHNIQUE: Focused ultrasound of the area of clinical interest was performed. FINDINGS: There is diffuse soft tissue swelling seen over the anterior proximal to mid lower leg, measuring up to 1 cm in thickness. As seen on the plain film, there is a vertically oriented hypoechoic structure seen extending from the skin surface to the underlying muscle plane with mild surrounding hyperemia. This is suspicious for a small drainage tract. The underlying muscle shows a minimal focal hypoechoic region disturbing the architecture of the muscular fibers, possibly representing some focal edema. No drainable abscess collection is seen. IMPRESSION: Subcutaneous and superficial muscular soft tissue swelling is seen in region of the patient's skin thickening and erythema with a small drainage tract noted extending from the skin to the underlying muscle plane. Findings are suspicious for cellulitis in region of recent puncture injury. No drainable focal abscess collection seen.
--- NOTE | 2016-11-13 12:29 | PN- Att Addend ---
Attending Addendum Attending Brief Note 56 year old female with past medical history significant for only for hypothyroidism has been admitted on the floor for a left lower extremity cellulitis. Patient was recently seen in the ER for a boil and an incision and drainage was performed at that moment and blood cultures were taken. Patient was initially discharged to home on Keflex and Bactrim but on her follow-up 2 days later she was admitted due to high fevers and pain. X-rays showed small punctate foci of gas in the soft tissues. Patient was seen and examined on the bedside, she did not complain of any pain or fever. Wound was checked with a small open wound. Surgery did not recommend any surgical intervention at this time. We would get a consult from ID to rule out for any insect bite disease. We will continue to monitor. For now we'll keep her on clindamycin.
--- NOTE | 2016-11-13 13:49 | NUR ---
0225 ADMITTED FROM ER VIA W/C TO ROOM 229 BED [age] YRS OLD WF FROM HOME LIVES WITH .A&OX3.ON RA.HL IN RAC.DENIES PAIN.ACCOMPANIED BY FAMILY. TO BR INDEPENDENTLY VOIDING QS.ORIENTED TO ROOM & SURROUNDINGS.DSD APPLIED TO LLE WOUND.V/S DONE.AFEBRILE.
[2016-11-13 14:45] VITALS: BP 122/70
[2016-11-13 21:44] VITALS: BP 116/60
[2016-11-14 06:59] VITALS: BP 90/60
[2016-11-14 08:18] LABS: ABSOLUTE BASOPHIL COUNT 0 /CUMM (0.0-0.2); ABSOLUTE EOSINOPHIL COUNT 0 /CUMM (0.0-0.7); ABSOLUTE GRANULOCYTE CT 1.4 /CUMM (1.4-6.5); ABSOLUTE LYMPH COUNT 1.8 /CUMM (1.2-3.4); ABSOLUTE MONOCYTE COUNT 0.6 /CUMM (0.10-0.60); BASOPHIL % 0.4 % (0.0-2.0); EOSINOPHIL % 0.1 % (0-5); GRANULOCYTE % 36.3 % (42.2-75.2); HEMATOCRIT 37.2 % (37-47); MEAN CORPUSCULAR HGB 29.9 PG (27.0-31.0); MEAN CORPUSCULAR HGB CONC 34.1 G/DL (33.0-37.0); MEAN CORPUSCULAR VOLUME 87.7 FL (81.0-99.0); MEAN PLATELET VOLUME 8.9 FL (7.4-10.4); PLATELET COUNT 132 /CUMM (130-400); RBC DISTRIBUTION WIDTH 12.5 % (11.5-14.5); RED BLOOD CELL CT 4.24 /CUMM (4.20-5.40); WHITE BLOOD CELL COUNT 3.8 /CUMM (4.8-10.8)
--- NOTE | 2016-11-14 09:41 | PN- Housestaff ---
MARGO RAUSCH 11/14/16 0940: Subjective Follow-up For: 1. Cellulitis Subjective: She was comfortable this am. She was lying in her bed, and was seen walking on gen [employer] floor. She had no complaints. No pain in her leg. Remained afebrile overnight. Review of Systems Constitutional: Reports: see HPI. Objective Last 24 Hrs of Vital Signs/I&O Vital Signs Date Time Temp Pulse Resp B/P Pulse O2 O2 Flow FiO2 Ox Delivery Rate 11/14 0659 97.4 89 20 90/60 95 Room Air 11/13 2144 99.6 80 20 116/60 95 11/13 1445 96.0 70 20 122/70 98 Intake & Output 11/14 1600 11/14 0800 11/14 0000 Intake Total 400 Output Total Balance 400 Intake, Oral 400 Physical Exam General Appearance: No Acute Distress Other Physical Findings: General Exam: AAOx3, No acute distress, Skin: No rashes, no breakdown HEENT: PERRLA, EOMI Neck: Supple, No JVD, IJ in place, no tenderness or erythema surrounding. No cervical lymphadenopathy CVS: Reg Rate, Normal S1,S2, No MGR Resp: Normal air entry, no ronchi/rales Abdomen: Soft, No tenderness, Normal Bowel Sounds, Webster catheter in place. Neuro: Normal Speech, Strength 5/5 b/l x 4 extremities, Sensation intact, CN III -XII NL, Reflexes 2+ Extremities: No cyanosis, No pedal edema. Left lower extremity - ulcer [id number], erythema, drainage. Current Medications: Current Medications Sig/Rell Start time Last Medication Dose Route Stop Time Status Admin Acetaminophen 650 MG Q6P PRN 11/13 0115 AC PO Clindamycin 600 MG IQ8 11/13 0800 AC 11/14 Dextrose/Water 50 ML IV 0902 Enoxaparin Sodium 40 MG DAILY 11/13 1000 AC 11/14 SC 0902 Levothyroxine Sodium 0.075 MG DAILY AC 11/13 0700 AC 11/14 PO 0625 Last 24 Hrs of Lab/Darrell Results Last 24 Hrs of Labs/Mics: Laboratory Tests 11/14/16 0757: Anion Gap 9, Estimated GFR > 60, BUN/Creatinine Ratio 12.9, CBC w Diff NO MAN DIFF REQ, RBC 4.24, MCV 87.7, MCH 29.9, RDW 12.5, MPV 8.9, Gran % 36.3 L, Lymphocytes % 46.6, Monocytes % 16.6 H, Eosinophils % 0.1, Basophils % 0.4, Absolute Granulocytes 1.4, Absolute Lymphocytes 1.8, Absolute Monocytes 0.6, Absolute Eosinophils 0, Absolute Basophils 0, PUBS MCHC 34.1 11/13/16 1328: Lyme Disease Antibody Pending 11/13/16 1328: A.phagocytophil DNA PCR Pending Assessment/Plan Assessment: She is an older woman w/ a PMH hypothyroidism is being evaluated for wound drainage, persistent fever, and cellulitis failed outpatient therapy(bactrim, keflex). Below is the problem list and plan: 1. Left leg swelling, ulcer and cellultis- likely due to cellulitis. Drainage +. Pt was given vancomycin in the ED. I&D was done. Staph in the differential. Continue clindamycin q8h. BC x 2 negative. Consulted surgery for advice. US showed subcutaneous swelling. Fever. Leucopenia w/ granulocytopenia and monocytosis. Slight elevation in AST. Peripheral smear did not reveal any morulae. Tick bite is in the differential. Anaplasma dna pcr. ID to see the pt in the am. Continue on clindamycin po starting in the am. C diff education material provided. Wound check in the am w/ dry dressing. Monitor for CBC and fever. 2. DVT prophylaxis- Problem List: 1. Cellulitis 2. Abscess of leg, left Pain Ratin Pain Location: left leg. Pain Goal: Pain 4 or less Pain Plan: tylenol prn Tomorrow's Labs & Rationales: cbc bep DEVONTE SOTELO,[facility] 11/14/16 1136: Attending MD Review Statement Attending Statement Attending MD Statement: examined this patient, discuss w/resident/PA/SECTION MAINTAINER, agreed w/resident/PA/SECTION MAINTAINER, discussed with family, reviewed EMR data (avail), discussed with nursing, reviewed images Attending Assessment/Plan: 56 year old female with past medical history significant for only for hypothyroidism has been admitted on the floor for a left lower extremity cellulitis. Patient was recently seen in the ER for a boil and an incision and drainage was performed at that moment and blood cultures were taken. Patient was initially discharged to home on Keflex and Bactrim but on her follow-up 2 days later she was admitted due to high fevers and pain. X-rays showed small punctate foci of gas in the soft tissues. Patient was seen and examined on the bedside, she did not complain of any pain or fever. Wound examined with a mild serous discharge but and surrounding erythema is decreasing. Surgery did not recommend any surgical intervention at this time. We would get a consult from ID to rule out for any insect bite disease. We will continue to monitor. For now we'll keep her on clindamycin.
[2016-11-14 14:29] VITALS: BP 125/70
[2016-11-15 07:00] VITALS: BP 106/60
--- NOTE | 2016-11-15 07:19 | PN- Housestaff ---
MARGO RAUSCH 11/15/16 0718: Subjective Follow-up For: 1. cellulitis Subjective: The patient is comfortable this morning. Vitals remained stable overnight. Pain and tenderness improved compared to the day before. Has been active, and does not complain of any restriction in mobility. Review of Systems Constitutional: Reports: see HPI. Objective Last 24 Hrs of Vital Signs/I&O Vital Signs Date Time Temp Pulse Resp B/P Pulse O2 O2 Flow FiO2 Ox Delivery Rate 11/15 0700 97.9 65 16 106/60 97 11/14 1429 98.2 80 20 125/70 96 Intake & Output 11/15 0800 11/15 0000 11/14 1600 Intake Total 340 100 920 Output Total Balance 340 100 920 Intake, IV 100 120 Intake, Oral 240 100 800 Physical Exam General Appearance: No Acute Distress Other Physical Findings: General Exam: AAOx3, No acute distress, Skin: No rashes, ulcer [id number] on the left palacios, no drainage. erythema limited to the ulcer, no surrounding erythema. HEENT: PERRLA, EOMI Neck: Supple, No JVD No cervical lymphadenopathy CVS: Reg Rate, Normal S1,S2, No MGR Resp: Normal air entry, no ronchi/rales Abdomen: Soft, No tenderness, Normal Bowel Sounds Neuro: Normal Speech, Strength 5/5 b/l x 4 extremities, Sensation intact, CN III -XII NL, Reflexes 2+ Extremities: No cyanosis, pedal edema Current Medications: Current Medications Sig/Rell Start time Last Medication Dose Route Stop Time Status Admin Acetaminophen 650 MG Q6P PRN 11/13 0115 AC PO Clindamycin 600 MG IQ8 11/13 0800 AC 11/14 Dextrose/Water 50 ML IV 2310 Enoxaparin Sodium 40 MG DAILY 11/13 1000 AC 11/14 SC 0902 Levothyroxine Sodium 0.075 MG DAILY AC 11/13 0700 AC 11/15 PO 0642 Last 24 Hrs of Lab/Darrell Results Last 24 Hrs of Labs/Mics: Laboratory Tests 11/15/16 0637: Total Bilirubin Pending, Direct Bilirubin Pending, AST Pending, ALT Pending, Alkaline Phosphatase Pending, Total Protein Pending, Albumin Pending, CBC w Diff Pending, WBC Pending, RBC Pending, Hgb Pending, Hct Pending, MCV Pending, MCH Pending, RDW Pending, Plt Count Pending, MPV Pending, PUBS MCHC Pending 11/14/16 0757: Anion Gap 9, Estimated GFR > 60, BUN/Creatinine Ratio 12.9, CBC w Diff NO MAN DIFF REQ, RBC 4.24, MCV 87.7, MCH 29.9, RDW 12.5, MPV 8.9, Gran % 36.3 L, Lymphocytes % 46.6, Monocytes % 16.6 H, Eosinophils % 0.1, Basophils % 0.4, Absolute Granulocytes 1.4, Absolute Lymphocytes 1.8, Absolute Monocytes 0.6, Absolute Eosinophils 0, Absolute Basophils 0, PUBS MCHC 34.1 Assessment/Plan Assessment: She is an older woman w/ a PMH hypothyroidism is being evaluated for wound drainage, persistent fever, and cellulitis failed outpatient therapy(bactrim, keflex). Below is the problem list and plan: 1. Left leg swelling, ulcer and cellultis- likely due to cellulitis. Drainage +. Pt was given vancomycin in the ED. I&D was done. Continue clindamycin q8h for now. BC x 2 negative. US showed subcutaneous swelling. Fever. Leucopenia w/ granulocytopenia and monocytosis(WBC 3.2, platelet count 127,granulocyte percentage 24.2 with (absolute granulocytes 800),monocyte percentage 16.3). Slight elevation in AST. Peripheral smear did not reveal any morulae in leucocytes. Tick bite is in the differential. Follow up Anaplasma dna pcr, Lyme disease serology is negative. Boris Joshi MD advising Continue on clindamycin po starting in the am. C diff education material provided.wound dressing changed today. Monitor for CBC and fever. Plan to discharge the patient after being evaluated by the infectious disease safety consultant-Boris Joshi MD. 2. DVT prophylaxis- Problem List: 1. Cellulitis Pain Ratin Pain Location: left lower extremity Pain Goal: Pain 4 or less Pain Plan: tylenol prn Tomorrow's Labs & Rationales: cbc- to monitor for wbc count DASHA SNIDER MD 11/15/16 1123: Attending MD Review Statement Attending Statement Attending MD Statement: examined this patient, discuss w/resident/PA/DIRECTOR PROCESS ENGINEERING, agreed w/resident/PA/DIRECTOR PROCESS ENGINEERING, reviewed EMR data (avail) Attending Assessment/Plan: LLL abscess and cellulitis improving, still serous drainage but no purulence, no fluctuance or tenderness to surrounding area. Patient continues to have low WBC and mildly elevated AST. Doing well on Clindamycin. Scheduled to have ID consult today. Will follow up surgery and ID recommendations and likely discharge on Clindamycin in the afternoon with outpatient follow up.
[2016-11-15 08:15] LABS: ABSOLUTE BASOPHIL COUNT 0 /CUMM (0.0-0.2); ABSOLUTE EOSINOPHIL COUNT 0 /CUMM (0.0-0.7); ABSOLUTE GRANULOCYTE CT 0.8 /CUMM (1.4-6.5); ABSOLUTE LYMPH COUNT 1.9 /CUMM (1.2-3.4); ABSOLUTE MONOCYTE COUNT 0.5 /CUMM (0.10-0.60); BASOPHIL % 0.7 % (0.0-2.0); EOSINOPHIL % 0.6 % (0-5); GRANULOCYTE % 24.2 % (42.2-75.2); HEMATOCRIT 36.5 % (37-47); MEAN CORPUSCULAR HGB 29.9 PG (27.0-31.0); MEAN CORPUSCULAR HGB CONC 34.2 G/DL (33.0-37.0); MEAN CORPUSCULAR VOLUME 87.5 FL (81.0-99.0); MEAN PLATELET VOLUME 8.9 FL (7.4-10.4); PLATELET COUNT 127 /CUMM (130-400); RBC DISTRIBUTION WIDTH 12.7 % (11.5-14.5); RED BLOOD CELL CT 4.17 /CUMM (4.20-5.40)
[2016-11-15 09:58] LABS: WHITE BLOOD CELL COUNT 3.2 /CUMM (4.8-10.8)
[2016-11-15 13:52] VITALS: BP 100/60
[2016-11-15] MEDS ORDERED: CLEOCIN HCL300 M1 PO ×5 (13:59→15:57)
--- NOTE | 2016-11-15 14:00 | Patient Discharge Instructions ---
Discharge Instructions General Discharge Information You were seen/treated for: #1 cellulitis You had these procedures: #1 incision and drainage of the abscess Watch for these problems: #1 redness, pain in the left lower extremity #2 chest pain, shortness of breath, palpitations. #3 if he have any diarrhea, please contact your primary care provider as soon as possible. Special Instructions: #1 please follow up with her primary care provider within one week of discharge. #2 please follow-up with your surgeon within 1 week of discharge. #3 please get blood work done on 11/18/2016 and discuss with her primary care provider. Acute Coronary Syndrome Inclusion Criteria At DC or during hospital stay patient has or had the following: ACS DIAGNOSIS No Discharge Core Measures Meds if any: Prescribed or Continued at Discharge Meds if any: NOT Prescribed or Continued at Discharge Congestive Heart Failure Inclusion Criteria At DC or during hospital stay patient has or had the following: CHF DIAGNOSIS No Discharge Core Measures Meds if any: Prescribed or Continued at Discharge Meds if any: NOT Prescribed or Continued at Discharge Cerebrovascular accident Inclusion Criteria At DC or during hospital stay patient has or had the following: CVA/TIA Diagnosis No Discharge Core Measures Meds if any: Prescribed or Continued at Discharge Meds if any: NOT Prescribed or Continued at Discharge Venous thromboembolism Inclusion Criteria VTE Diagnosis No VTE Type NONE VTE Confirmed by (Test) NONE Discharge Core Measures - Per Current guidelines, there needs to be overlap - treatment for the first 5 days of Warfarin therapy. - If discharged on Warfarin prior to 5 days of - overlap therapy, the patient will need to be - assessed for post discharge needs including - *Post discharge parental anticoagulation - *Warfarin and/or parental anticoagulation education - *Follow up date to check INR post discharge At least 5 days overlap therapy as Inpatient No Meds if any: Prescribed or Continued at Discharge Note: Overlap Therapy is Warfarin and Anticoagulant Meds if any: NOT Prescribed or Continued at Discharge
--- NOTE | 2016-11-15 16:44 | Cons- Infect Disease ---
General Information and HPI Consulting Request Date of Consult: 11/15/16 Requested By: DASHA SNIDER MD Reason for Consult: Rule out cellulitis left leg Source of Information: patient, family History of Present Illness: This is a 56-year-old woman with a history of hypothyroidism, seen in the emergency room 2 days prior to admission, 1 day after she popped what she thought was a pimple on the anterior aspect of her left leg, with the complaint of headache, chills, cough and pleuritic chest pain, found to be febrile to 101.3, with aspiration negative for any purulent discharge, sent home on Keflex and Bactrim, admitted on November 12 after returning to the emergency room with fevers and headaches. On admission she was febrile to 102.2. Laboratory data revealed a white blood cell count of 4000, BUN/creatinine 8 and 0.8, AST/ALT 59 and 43. X-ray of the left tibia/fibula revealed mild focal soft tissue swelling. Chest x-ray was negative. Ultrasound of the left leg revealed subcutaneous and superficial soft tissue swelling with a small drainage tract extending from the skin to the underlying muscle plane. She was given a dose of Vancomycin and then placed on Clindamycin. She quickly defervesced and white blood cell count has remained normal. She has not had any pain from the onset and noted minimal erythema. She reports no cough or body aches recently, but did have these initially. Other members of her family have been ill with a febrile illness. Allergies/Medications Allergies: Coded Allergies: NO KNOWN ALLERGIES (11/11/14) Home Med List: Cephalexin (Keflex) 250 MG CAPSULE 1 CAP PO 4 TIMES/DAY CELLULITIS Levothyroxine Sodium 75 MCG TABLET 1 TAB PO DAILY thyorid (Reported) Sulfamethoxazole/Trimethoprim (Bactrim 400-80 MG Tablet) 400 MG-80 MG TABLET 1 TAB PO BID CELLULITIS Past History Travel History Traveled to [place] past 21 day No Medical History Blood Transfusion Hx: No Neurological: NONE EENT: NONE Cardiovascular: NONE Respiratory: NONE Gastrointestinal: NONE Hepatic: NONE Renal: NONE Musculoskeletal: NONE Psychiatric: NONE Endocrine: hypothyroidism Blood Disorders: NONE Cancer(s): NONE SEED AND FERTILIZER SPECIALIST/Reproductive: NONE History of MRSA: No History of VRE: No History of CDIFF: No Isolation History: Standard Surgical History Surgical History: non-contributory Family History Relations & Conditions If Any: FATHER FH: stomach cancer Psychosocial History Where Do You Live? Home Services at Home: None Primary Language: [facility] Smoking Status: Never Smoked ETOH Use: denies use Illicit Drug Use: denies illicit drug use Functional Ability ADLs Independent: dressing, eating, toileting, bathing. Ambulation: independent IADLs Independent: shopping, housework, finances, food prep, telephone, transportation , medication admin. Review of Systems Review of Systems Respiratory: Denies: short of breath. GI: Denies: abdominal pain, diarrhea. Genitourinary: Reports: no symptoms. Musculoskeletal: Reports: joint pain, muscle pain. All Other Systems: Reviewed and Negative Exam & Diagnostic Data Last 24 Hrs of Vital Signs/I&O Vital Signs Date Time Temp Pulse Resp B/P Pulse O2 O2 Flow FiO2 Ox Delivery Rate 11/15 1352 98.1 71 20 100/60 97 Nasal Cannula 11/15 0700 97.9 65 16 106/60 97 Intake & Output 11/15 1600 11/15 0800 11/15 0000 Intake Total 800 340 100 Output Total Balance 800 340 100 Intake, IV 100 Intake, Oral 800 240 100 Physical Exam Other Physical Findings: She is awake and alert in no acute distress. She is afebrile. Skin reveals no rash. HEENT exam is negative. Neck is supple with no adenopathy. Lungs are clear. Heart regular rhythm with no murmur. Abdomen is soft, nontender with positive bowel sounds. Back no CVA tenderness. Extremities wound on the anterior aspect of the left leg, with no erythema, induration or tenderness. Neuro is without focality. Last 24 Hours of Lab Results: Laboratory Tests 11/15 0637 Chemistry Total Bilirubin (0.2 - 1.3 mg/dL) 0.6 Direct Bilirubin (< 0.4 mg/dL) 0.3 AST (14 - 36 U/L) 37 H ALT (9 - 52 U/L) 35 Alkaline Phosphatase (<127 U/L) 36 Total Protein (6.3 - 8.2 g/dL) 6.6 Albumin (3.5 - 5.0 g/dL) 3.5 Hematology CBC w Diff NO MAN DIFF REQ WBC (4.8 - 10.8 /CUMM) 3.2 L RBC (4.20 - 5.40 /CUMM) 4.17 L Hgb (12.0 - 16.0 G/DL) 12.5 Hct (37 - 47 %) 36.5 L MCV (81.0 - 99.0 FL) 87.5 MCH (27.0 - 31.0 PG) 29.9 RDW (11.5 - 14.5 %) 12.7 Plt Count (130 - 400 /CUMM) 127 L MPV (7.4 - 10.4 FL) 8.9 Gran % (42.2 - 75.2 %) 24.2 L Lymphocytes % (20.5 - 51.1 %) 58.2 H Monocytes % (1.7 - 9.3 %) 16.3 H Eosinophils % (0 - 5 %) 0.6 Basophils % (0.0 - 2.0 %) 0.7 Absolute Granulocytes (1.4 - 6.5 /CUMM) 0.8 L Absolute Lymphocytes (1.2 - 3.4 /CUMM) 1.9 Absolute Monocytes (0.10 - 0.60 /CUMM) 0.5 Absolute Eosinophils (0.0 - 0.7 /CUMM) 0 Absolute Basophils (0.0 - 0.2 /CUMM) 0 PUBS MCHC (33.0 - 37.0 G/DL) 34.2 Last 24 Hours of Darrell Results: Blood cultures 2 November 12 negative Left leg aspiration November 11 negative, with gram stain revealing rare white blood cells and no organisms Diagnostic Data Recent Imaging Findings: X-ray of the left tibia/fibula revealed mild focal soft tissue swelling. Chest x-ray, personally reviewed, negative. Ultrasound of the left leg revealed subcutaneous and superficial soft tissue swelling with a small drainage tract extending from the skin to the underlying muscle plane. Assessment/Plan Assessment/Plan Impression: This is a 56-year-old woman admitted on November 12 with a fever, cough and chest pain several days after attempting to pop what she felt was a pimple on the anterior aspect of her left leg, given Keflex and Bactrim in the ER 2 days prior to admission, found on admission to be febrile with a leukopenia and mild thrombocytopenia, treated empirically for cellulitis with rapid defervescence and resolution of her symptoms. At this time she has no evidence for cellulitis of the left leg. As she had no pain or tenderness of the leg and her white blood cell count was normal I am not convinced she had a cellulitis and suspect that her fever may have been secondary to a viral syndrome, possibly the flu given her respiratory complaints. In any event she has received 5 days of antibiotics to date, which should be adequate to treat a cellulitis. Suggestion: 1. Discontinue Clindamycin and follow off antibiotics Consult Acknowledgment - Thank you for your consult request.
--- NOTE | 2016-11-15 17:03 | Discharge Summary ---
Visit Information Visit Dates Admission Date: 11/12/16 Discharge Date: 11/15/16 Hospital Course Course Attending Physician: DASHA SNIDER MD Primary Care Physician: URBANO VARGAS MD Consulting Request: Consulting Specialty: Infectious Disease Consulting Physician: Boris Joshi MD Hospital Course: Ms Branch is a 56 yr old woman with a past medical history of hypothyroidism, recent ER visit complaint of swelling of left leg x 2d prior to admission s/p I& D (treated with Keflex and Bactrim), was being evaluated for fever, headache. At the time of admission, WBC 4.3 (leukopenia), monocytosis 19.1, hemoglobin 12.9, platelets 143 (dropped to 124), sodium 135, potassium 4.2, normal renal function BUN 8, serum creatinine 0.8, AST 59, ALT 43. Radiological [id number] of tibia and fibula of the left leg-revealed mild focal soft tissue swelling anterior in the upper mid calf with a small focus of soft tissue gas was found. (Likely from recent I&D), ultrasound of popliteal foci revealed subcutaneous muscular soft tissue swelling and small drainage tract was noted extending from skin to underlying muscle plane. Chest x-ray did not reveal any acute cardiopulmonary findings. Differential diagnosis-#1 inflammation of left leg Below is the problem list and plan: #1 swelling of left leg-since she had swelling of the left leg requiring I&D and treatment with antibiotics, she was continued on clindamycin during the stay in the hospital. As per the infectious disease publicity consultant, it did not appear to have had cellulitis during this current admission, and was not discharged on any more antibiotics. She did not have any pain or tenderness of left leg during the stay in the hospital. She continued to have slight leukopenia and thrombocytopenia, reason of which was unclear. Since she had slight decrease in leukocytes, peripheral smear was done which revealed no abnormal cells suggestive of any tickborne infection. Allergies: Coded Allergies: NO KNOWN ALLERGIES (11/11/14) Pertinent Lab Results: RAD - [id number], LEFT Mild focal soft tissue swelling anteriorly in the upper to mid calf, with a small focus of soft tissue gas. US - US-SUPERFICIAL IMAGING EXTREMI Subcutaneous and superficial muscular soft tissue swelling is seen in region of the patient's skin thickening and erythema with a small drainage tract noted extending from the skin to the underlying muscle plane. Findings are suspicious for cellulitis in region of recent puncture injury. No drainable focal abscess collection seen. Disposition Summary Disposition Principal Diagnosis: Inflammation of left lower leg Additional Diagnosis: Questionable cellulitis Discharge Disposition: home or self care Discharge Instructions General Discharge Information Code Status: Full Code Patient's Diet: As tolerated Patient's Activity: As tolerated Follow-Up Instructions/Appts: #1 please follow up with her primary care provider within one week of discharge. #2 please follow-up with your surgeon within 1 week of discharge. #3 please get blood work done on 11/18/2016 and discuss with her primary care provider. Medications at Discharge Discharge Medications: Stop taking the following medications: Cephalexin (Keflex) 250 MG CAPSULE ORAL 4 TIMES A DAY Qty = 40 Sulfamethoxazole/Trimethoprim (Bactrim 400-80 MG Tablet) 400 MG-80 MG TABLET ORAL TWICE DAILY Qty = 20 Continue taking these medications: Levothyroxine Sodium (Levothyroxine Sodium) 75 MCG TABLET 1 Tablet ORAL DAILY Copies To: SAM SOTELO,URBANO Cheney Attending MD Review Statement Documenting Attending: DASHA SNIDER MD
== END 2016-11-15 17:03 | DRG 383 ==
LOC: ENRESERVTM → ENRESERVDT → ERH 21:07 → ERHI 21:39 → 2NA 21:39
PROVIDERS: Internal Medicine; Internal Medicine Endocrinology, Diabetes & Metabolism; Internal Medicine Nephrology; Pediatrics; ADMIT Internal Medicine
DX: L03.116 Cellulitis of left lower limb (principal); L02.416 Cutaneous abscess of left lower limb; E03.9 Hypothyroidism, unspecified
CPT/HCPCS: 2NAP; 2NASP; 86618; 87798; ERO; 36415; 73590-LT; 76881; 82436; 87040; 87070; 96365; J1650; J3370; J7060

== ENCOUNTER 2017-04-06 19:40 | Emergency (ER) | payer OTHER ==
[~2017-04-06] VITALS: Ht 175.3 cm; Wt 87.5 kg
[~2017-04-06 19:40] MED LIST changes: +CLEOCIN HCL300 M1 PO
[2017-04-06 19:45] VITALS: BP 152/76
[2017-04-06 20:04] LABS: ABSOLUTE BASOPHIL COUNT 0.1 /CUMM (0.0-0.2); ABSOLUTE EOSINOPHIL COUNT 0.1 /CUMM (0.0-0.7); ABSOLUTE GRANULOCYTE CT 3.8 /CUMM (1.4-6.5); ABSOLUTE LYMPH COUNT 2.8 /CUMM (1.2-3.4); ABSOLUTE MONOCYTE COUNT 0.7 /CUMM (0.10-0.60); BASOPHIL % 0.7 % (0.0-2.0); EOSINOPHIL % 1.9 % (0-5); MEAN CORPUSCULAR HGB 29.4 PG (27.0-31.0); MEAN CORPUSCULAR HGB CONC 33.6 G/DL (33.0-37.0); MEAN CORPUSCULAR VOLUME 87.5 FL (81.0-99.0); MEAN PLATELET VOLUME 8.3 FL (7.4-10.4); PLATELET COUNT 219 /CUMM (130-400); RBC DISTRIBUTION WIDTH 12.7 % (11.5-14.5); RED BLOOD CELL CT 4.46 /CUMM (4.20-5.40); WHITE BLOOD CELL COUNT 7.6 /CUMM (4.8-10.8)
[2017-04-06 20:08] LABS: GRANULOCYTE % 50.7 % (42.2-75.2)
--- NOTE | 2017-04-06 22:46 | RADIOLOGY REPORT ---
EXAMINATION: XR CHEST CLINICAL INFORMATION: Epigastric pain. Right upper quadrant pain. COMPARISON: Chest x-ray 11/13/2016 TECHNIQUE: 2 views of the chest were obtained. FINDINGS: Lungs are clear. No pulmonary vascular congestion. No infiltrate or pleural effusion. The heart size is normal. The cardiac and mediastinal contours are normal. There are calcifications of the thoracic aorta. There are multilevel degenerative changes of dorsal spine. IMPRESSION: Unremarkable examination.
--- NOTE | 2017-04-06 22:57 | ED GI/GU/ABDOMINAL COMPLAINT ---
History of Present Illness General Chief Complaint: General Adult Stated Complaint: PT CAN'T BREATH ,FEELS LIKE SHE GOING TO POP Source: patient, family Exam Limitations: language barrier, Son translated Shamika Vital Signs & Intake/Output Vital Signs & Intake/Output Vital Signs Date Time Temp Pulse Resp B/P B/P Pulse O2 O2 Flow FiO2 Mean Ox Delivery Rate 04/06 1945 96.6 68 18 152/76 99 Room Air ED Intake and Output 04/07 0000 04/06 1200 Intake Total Output Total Balance Patient 193 lb Weight Allergies Coded Allergies: NO KNOWN ALLERGIES (11/11/14) Reconcile Medications Levothyroxine Sodium 75 MCG TABLET 1 TAB PO DAILY thyorid (Reported) Triage Note: PT STATES THAT FOR THE PAST 15 MINUTES SHE HAS BEEN HAVING MID ABD PAIN THAT RADIATES UP, PAIN IS BETTER NOW , PTS SON STATES THAT A MONTH AGO THE SAME THING HAPPENED AND LAST ONLY 15 MINUTES AND COMPLETELY WENT AWAY.STATES THAT PAIN STARTED RIGHT AFTER EATING. DENIES N/V AT THIS TIME , BUT WHEN SHE WAS HAVING THE PAIN SHE DID. DENIES URINARY SYMPTOMS. Triage Nurses Notes Reviewed? yes ? n Is pt currently ? No HPI: Ms. Branch is a 56 yo f w/ PMH of hypothyroidism presenting to ED for abdominal pain. Patient states she had eaten dinner potatoes and steak and approximately 10-15 minutes later she developed epigastric pain that radiated upward into the lower part of her chest. Patient states the pain felt like a fullness and it felt like her chest might pop. Patient denies any fevers or chills. No cough. No chest pain at this point in time. Positive nausea but no vomiting or diarrhea. Normal urination and defecation per patient. No unintentional weight loss. No night sweats. (ILAN SOTELO,NELIA) Past History Travel History Traveled to [place] past 21 day No Medical History Any Pertinent Medical History? see below for history Neurological: NONE EENT: NONE Cardiovascular: NONE Respiratory: NONE Gastrointestinal: NONE Hepatic: NONE Renal: NONE Musculoskeletal: NONE Psychiatric: NONE Endocrine: hypothyroidism Blood Disorders: NONE Cancer(s): NONE URINALYSIS TECHNICIAN/Reproductive: NONE History of MRSA: No History of VRE: No History of CDIFF: No Surgical History Surgical History: non-contributory Psychosocial History Who do you live with Spouse Services at Home None What is your primary language Other Tobacco Use: Never used ETOH Use: denies use Illicit Drug Use: denies illicit drug use Family History Family History, If Any: FATHER FH: stomach cancer Hx Contributory? No (NELIA TALAVERA MD) Review of Systems Review of Systems Constitutional: Reports: see HPI. EENTM: Reports: no symptoms. Respiratory: Reports: no symptoms. Cardiovascular: Reports: no symptoms. GI: Reports: abdominal pain, distention, nausea. Genitourinary: Reports: no symptoms. Musculoskeletal: Reports: no symptoms. Skin: Reports: no symptoms. Neurological/Psychological: Reports: no symptoms. Hematologic/Endocrine: Reports: no symptoms. Immunologic/Allergic: Reports: no symptoms. All Other Systems: Reviewed and Negative (NELIA TALAVERA MD) Physical Exam Physical Exam General Appearance: well developed/nourished, no apparent distress, alert, awake , comfortable Head: atraumatic, normal appearance Eyes: Bilateral: normal appearance, PERRL, EOMI, normal inspection. Ears, Nose, Throat, Mouth: hearing grossly normal, moist mucous membrane, Tympanic normal Neck: normal inspection, supple, full range of motion Respiratory: normal breath sounds, chest non-tender, no respiratory distress Cardiovascular: regular rate/rhythm, normal peripheral pulses Gastrointestinal: normal bowel sounds, soft, non-tender, no organomegaly Rectal: deferred Back: normal inspection, normal range of motion Extremities: normal range of motion Neurologic/Psych: no motor/sensory deficits, awake, alert, oriented x 3, normal gait, normal mood/affect Skin: intact, normal color, warm/dry Core Measures ACS in differential dx? No Severe Sepsis Present: No Septic Shock Present: No (NELIA TALAVERA MD) Progress Differential Diagnosis: diverticulitis, gastritis, pancreatitis, perforated viscous, UTI/pyelo, cholecystitis Plan of Care: Orders Procedure Date/time Status URINALYSIS 04/06 1943 Complete LACTIC ACID 04/06 1943 Complete COMPREHENSIVE METABOLIC PANEL 04/06 1943 Complete CBC WITHOUT DIFFERENTIAL 04/06 1943 Complete Laboratory Tests 04/06/172242: Lactic Acid Cancelled 04/06/172156: Urine Color YEL, Urine Clarity CLEAR, Urine pH 6.0, Ur Specific [place] 1.020, Urine Protein NEG, Urine Ketones TRACE H, Urine Nitrite NEG, Urine Bilirubin NEG, Urine Urobilinogen 1.0, Ur Leukocyte Esterase TRACE H, Ur Microscopic SEDIMENT EXAMINED, Urine RBC RARE, Urine WBC 5-10 H, Ur Epithelial Cells FEW, Urine Bacteria FEW H, Urine Hemoglobin NEG, Urine Glucose NEG 04/06/171947: Anion Gap 12, Estimated GFR > 60, BUN/Creatinine Ratio 25.7 H, Glucose 111 H, Lactic Acid 1.2, Calcium 9.7, Total Bilirubin 1.0, AST 99 H, ALT 78 H, Alkaline Phosphatase 50, Total Protein 7.5, Albumin 4.3, Globulin 3.2, Albumin/ Globulin Ratio 1.3, CBC w Diff NO MAN DIFF REQ, RBC 4.46, MCV 87.5, MCH 29.4, RDW 12.7, MPV 8.3, Gran % 50.7, Lymphocytes % 37.3, Monocytes % 9.4 H, Eosinophils % 1.9, Basophils % 0.7, Absolute Granulocytes 3.8, Absolute Lymphocytes 2.8, Absolute Monocytes 0.7 H, Absolute Eosinophils 0.1, Absolute Basophils 0.1, PUBS MCHC 33.6 Patient is generally well-appearing. Positive epigastric pain radiating up to her chest. Pain is improved since initially began but not completely resolved. Patient denies a burning sensation. Denies eating excessively today. History of one previous episode approximately 1 month ago that also resolved on its own. Patient denies drinking excessively. No significant medical problems. No evidence of dehydration clinically as she has moist mucous membranes. Her abdomen is soft non-peritoneal headache with no evidence of guarding or rebound. Likely GERD and will give GI cocktail and reassess. Basic labs were already drawn in triage. Basic labs essentially unremarkable. Mild elevation in BUN to creatinine ratio. X-ray is unremarkable. UA shows trace leukocyte esterase with only 5-10 WBCs. Patient denies dysuria or increased urinary frequency. Patient discharged home with recommendations to use OTC H2 nilsa or PPI to help with her GERD. Patient also given return precautions should it her pain worsen or she has any other concerning symptoms. (NELIA TALAVERA MD) Initial ED EKG: none (NELIA TALAVERA MD) Departure Departure Time of Disposition: 2255 Disposition: HOME OR SELF CARE Condition: Stable Clinical Impression Primary Impression: Epigastric pain Referrals: URBANO VARGAS MD (PCP/Family) Additional Instructions: Please make sure to drink plenty of fluids. His labs show that you are dehydrated. If you develop fever, worsening pain, or unable to keep down food or drink or any other concerning symptoms, please return to the emergency department for further evaluation. Departure Forms: Customer Survey General Discharge Information (ILAN SOTELO,NELIA) PA/PARTS ROOM CLERK Co-Sign Statement Statement: ED Attending supervision documentation- [] I saw and evaluated the patient. I have also reviewed all the pertinent lab results and diagnostic results. I agree with the findings and the plan of care as documented in the PA's/PARTS ROOM CLERK's documentation. [x] I have reviewed the ED Record and agree with the PA's/PARTS ROOM CLERK's documentation. [] Additions or exceptions (if any) to the PAs/PARTS ROOM CLERK's note and plan are summarized below: [] (KHLOE SOTELO,LIZET Maravilla)
== END 2017-04-06 23:11 ==
LOC: ERH 19:40
PROVIDERS: Emergency Medicine
DX: R10.13 Epigastric pain (principal)
CPT/HCPCS: 81001